=== PATIENT | female | born 1965 | race Caucasian/White ===

== ENCOUNTER → 2024-09-11 08:17 | Outpatient (REF) | payer OTHER, SELFPAY | LOC: WDC 08:17 | PROVIDERS: ATTENDING PHYSICIAN Family Medicine | DX: Z12.31 Encounter for screening mammogram for malignant neoplasm of breast (principal) | CPT/HCPCS: 77063; 77067 ==

== ENCOUNTER → 2024-12-18 09:04 | Outpatient (REF) | payer OTHER, SELFPAY | LOC: HWRCS 09:04 | PROVIDERS: ATTENDING PHYSICIAN Internal Medicine Cardiovascular Disease; FAMILY PHYSICIAN Family Medicine | DX: Q21.0 Ventricular septal defect (principal) | CPT/HCPCS: 93306 ==

== ENCOUNTER → 2024-12-22 08:51 | Outpatient (REF) | payer OTHER, SELFPAY | LOC: HWRAD 08:51 | PROVIDERS: ATTENDING PHYSICIAN Family Medicine | DX: Z78.0 Asymptomatic menopausal state (principal) | CPT/HCPCS: 77080 ==

== ENCOUNTER → 2025-03-30 13:06 | Outpatient (REF) | payer OTHER, SELFPAY | LOC: RCS 13:06 | PROVIDERS: ATTENDING PHYSICIAN Family Medicine | DX: R00.2 Palpitations (principal); R20.2 Paresthesia of skin; Q21.0 Ventricular septal defect; I34.0 Nonrheumatic mitral (valve) insufficiency; I07.1 Rheumatic tricuspid insufficiency | CPT/HCPCS: 93225; 93226 ==

== ENCOUNTER → 2025-06-24 07:28 | Outpatient (REF) | payer OTHER, SELFPAY | LOC: RCS 07:28 | PROVIDERS: ATTENDING PHYSICIAN Family Medicine | DX: R00.2 Palpitations (principal); R20.2 Paresthesia of skin; Q21.0 Ventricular septal defect; I34.0 Nonrheumatic mitral (valve) insufficiency; I07.1 Rheumatic tricuspid insufficiency | CPT/HCPCS: 93017 ==

== ENCOUNTER → 2025-07-22 09:04 | Outpatient (REF) | payer OTHER, SELFPAY | LOC: RCS 09:04 | PROVIDERS: ATTENDING PHYSICIAN Nurse Practitioner; FAMILY PHYSICIAN Family Medicine | DX: R06.09 Other forms of dyspnea (principal); R94.39 Abnormal result of other cardiovascular function study; R00.2 Palpitations; E78.00 Pure hypercholesterolemia, unspecified | CPT/HCPCS: 93017; 93350 ==

== ENCOUNTER → 2025-09-17 08:22 | Outpatient (REF) | payer OTHER, SELFPAY | LOC: WDC 08:22 | PROVIDERS: ATTENDING PHYSICIAN Family Medicine | DX: Z12.31 Encounter for screening mammogram for malignant neoplasm of breast (principal) | CPT/HCPCS: 77063; 77067 ==